=== PATIENT | male | born 1960 ===

== ENCOUNTER 2019-01-05 09:13 | Inpatient (IN) | payer OTHER ==
[~2019-01-05] VITALS: Ht 152.4 cm; Wt 5.0 kg
[2019-01-05] MEDS ORDERED: HYDROCHLOROTH12.5 M1 (09:28)
[2019-01-05] MEDS ORDERED: ASPIR 8181 MG (09:28)
[2019-01-05] MEDS ORDERED: ZOCOR20 MG (09:28)
[2019-01-05] MEDS ORDERED: RELAPHEN (09:28)
[2019-01-05] MEDS ORDERED: TOPROL XL50 M1 (09:28)
[2019-01-08] MEDS ORDERED: RANITIDINE HCL300 MG PO (08:12)
[2019-01-08] MEDS ORDERED: NABUMETONE500 MG PO (08:13)
[2019-01-08] MEDS ORDERED: LISINOPRIL10 MG PO (08:13)
== END 2019-01-10 15:59 | disposition home or self-care (01) | DRG 470 ==
LOC: O/R 10:30 → SURH 01-08 06:00
PROVIDERS: ADMIT Orthopaedic Surgery
PROC: 0SRC0J9 Replacement of Right Knee Joint with Synthetic Substitute, Cemented, Open Approach (ICD-10-PCS; principal; 2019-01-08 07:00)
DX: M17.11 Unilateral primary osteoarthritis, right knee (principal); M81.0 Age-related osteoporosis without current pathological fracture

== ENCOUNTER 2019-01-16 05:11 | Emergency (ER) | payer OTHER ==
[~2019-01-16] VITALS: Ht 165.1 cm; Wt 85.7 kg
[~2019-01-16 05:11] MED LIST: ASPIR 8181 MG; HYDROCHLOROTH12.5 M1; LISINOPRIL10 MG PO; NABUMETONE500 MG PO; RANITIDINE HCL300 MG PO; RELAPHEN; TOPROL XL50 M1; ZOCOR20 MG
== END 2019-01-16 14:52 | disposition home or self-care (01) ==
LOC: ER 05:11
DX: R31.0 Gross hematuria (principal); Z96.651 Presence of right artificial knee joint

== ENCOUNTER 2022-06-13 10:15 | Inpatient (IN) | payer OTHER ==
[~2022-06-13] VITALS: Ht 162.6 cm; Wt 98.0 kg
[2022-06-13] MEDS ORDERED: CHILDREN'S ASPI81 MG PO (11:48)
[2022-06-21] MEDS ORDERED: LISINOPRIL30 MG (11:04)
[2022-06-21] MEDS ORDERED: VITAMIN D31250 MCG (11:05)
[2022-06-21] MEDS ORDERED: PANTOPRAZOLE SO40 MG (11:05)
[2022-06-21] MEDS ORDERED: NABUMETONE500 MG (11:05)
[2022-06-21] MEDS ORDERED: HYOSCYAMINE0.125 M1 SL (12:16)
[2022-06-21] MEDS ORDERED: TRAM1TAB98 PO (12:17)
[2022-06-21] MEDS ORDERED: PROTONIX40 MG PO (12:17)
[2022-06-21] MEDS ORDERED: INTESTINEX680 M1 PO (12:18)
== END 2022-06-21 13:37 | disposition home or self-care (01) | DRG 330 ==
LOC: SURH 06-18 06:20 → O/R 06-18 06:20 → SURG 06-18 07:00 → SURH 06-18 14:08
PROVIDERS: ADMIT Surgery; ATTEND Surgery
PROC: 0DBP4ZZ Excision of Rectum, Percutaneous Endoscopic Approach (ICD-10-PCS; 2022-06-18)
PROC: 0DJD8ZZ Inspection of Lower Intestinal Tract, Via Natural or Artificial Opening Endoscopic (ICD-10-PCS; 2022-06-18)
PROC: 0T7D8DZ Dilation of Urethra with Intraluminal Device, Via Natural or Artificial Opening Endoscopic (ICD-10-PCS; 2022-06-18)
PROC: 3E0F7SF Introduction of Other Gas into Respiratory Tract, Via Natural or Artificial Opening (ICD-10-PCS; 2022-06-18)
PROC: 0DTN4ZZ Resection of Sigmoid Colon, Percutaneous Endoscopic Approach (ICD-10-PCS; principal; 2022-06-18 07:00)
DX: K57.20 Diverticulitis of large intestine with perforation and abscess without bleeding (principal); K56.51 Intestinal adhesions [bands], with partial obstruction; R19.4 Change in bowel habit; R10.32 Left lower quadrant pain; C61 Malignant neoplasm of prostate; N32.0 Bladder-neck obstruction; R31.9 Hematuria, unspecified; R33.8 Other retention of urine; I11.9 Hypertensive heart disease without heart failure